=== PATIENT | female | born 1970 | race Caucasian/White ===

== ENCOUNTER 2016-06-21 16:48 | Emergency (ER) | payer BC ==
--- NOTE | ~2016-06-21 | EKG ---
PATIENT: RUSSELL MATTA UNIT #: [id number] Ventricular Rate: 58 BPM Atrial Rate: 58 BPM P-R Interval: 142 ms QRS Duration: 70 ms Q-T Interval: 422 ms QTC Calculation(Bezet): 414 ms P [place]: 29 degrees Calculated R [place]: 56 degrees Calculated T [place]: 41 degrees Diagnosis Line: Sinus bradycardia Diagnosis Line: Otherwise normal ECG Diagnosis Line: When compared with ECG of 24-OCT-2015 02:19, Diagnosis Line: No significant change was found Diagnosis Line: Confirmed by RODRIGUEZ STEIN MD ([id number]) on 06/22/2016 Diagnosis Line: 11:17:48 PM INTERPRETING MD: EMIL GASTON
--- NOTE | ~2016-06-21 | CT71 ---
[facility] A Service [facility] RADIOLOGY TEXT RESULTS PATIENT: RUSSELL MATTA LOCATION: [facility] : 70 UNIT #: [id number] AGE: [address]: NYLA GONGORA SEX: F ORDER DR: [id number] [facility]. [place], [place] [address] [id number] E MR#: [id number] Acc #: [id number] NAME: RUSSELL MATTA. : 1970 SEX: F STUDY DATE/TIME: 06/21/2016 17:40 UNIT: [facility] ROOM: STUDY DESCRIPTION: CT Head Wo Contrast Attending Physician: Nyla Gongora Aprn Ordering Physician: Ed Doctor [id number] [facility] Primary Care Physician: Huyen Shea M.D. MEDICAL IMAGING REPORT This report is preliminary unless electronic signature is present EXAM CT head INDICATIONS Headache and lightheadedness for 4 days. Syncope for [address] head without contrast. This CT exam was performed with one or more of the following radiation dose reduction techniques: automatic exposure control, adjustment of mA and/or kV according to patient size, and iterative reconstruction. COMPARISON CT head dated 12/13/2014. FINDINGS Axial noncontrast images were obtained from the skull base to the vertex. Ventricular size and configuration are normal. There is no evidence of acute infarct or hemorrhage. There are no extra-axial fluid collections. No mass lesion or mass effect is seen. There are no skull fractures. There is some mild mucosal thickening within the ethmoidal air cells, frontal sinuses, and sphenoid sinuses. IMPRESSION Normal noncontrast head CT. Dictated by... Glenroy Desai M.D. [facility] A Service [facility] RADIOLOGY TEXT RESULTS PATIENT: RUSSELL MATTA LOCATION: [facility] : 70 UNIT #: [id number] AGE: [address]: NYLA GONGORA SEX: F ORDER DR: THIS IS AN ELECTRONICALLY VERIFIED REPORT Glenroy Desai M.D. at 06/21/2016 10:07 PM ANIRUDH/kieran TD: 06/21/2016 21:56 JOB #: [id number] MEDICAL IMAGING REPORT Page 1 of 1 COPY
[2016-06-21 13:56] LABS: INFLUENZA A NEG (NEG); INFLUENZA B NEG (NEG)
[2016-06-21 14:56] LABS: URINE SOURCE CLEAN CATCH
[2016-06-21 14:59] LABS: URINE APPEARANCE CLEAR; URINE BILIRUBIN NEG (NEG); URINE BLOOD NEG (NEG); URINE COLOR YELLOW; URINE GLUCOSE NEG (NEG); URINE KETONE NEG (NEG); URINE LEUKOCYTE ESTERASE NEG (NEG); URINE NITRATE NEG (NEG); URINE PH 6.5 (5-8); URINE PROTEIN NEG (NEG)
[2016-06-21 15:00] LABS: BASOPHIL% 0.4 % (0-2.5); EOSINOPHIL% 0.8 % (0.0-7.0); HEMOGLOBIN 14.5 gm/dL (12.0-16.0); LYMPHOCYTE# 1.5 X10e3 (1.0-3.5); MEAN CELL VOLUME 87.7 FL (83-96); MEAN CORPUSCULAR HEMOGLOBIN 30.4 PG (28-34); MEAN CORPUSCULAR HGB CONC 34.6 g/dL (30-36); MEAN PLATELET VOLUME 9.1 FL (6.5-11.5); MONOCYTE# 0.3 X10e3 (0-1.0); MONOCYTE% 6.4 % (3.0-12.0); NEUTROPHIL# 3.3 X10e3 (1.5-7.1); NEUTROPHIL% 64.4 % (40-75); PLATELET COUNT 236 X10e3 (140-420); RED BLOOD COUNT 4.79 X10e (3.90-5.30); RED CELL DISTRIBUTION WIDTH 13.1 % (11.0-15.5); WHITE BLOOD COUNT 5.2 X10e3 (4.0-10.5)
[2016-06-21 15:05] LABS: DIFF IND NO
[2016-06-21 15:06] LABS: CULTURE INDICATED? NO
[2016-06-21 15:26] LABS: ALBUMIN SERUM 3.9 g/dL (3.5-5.0); BILIRUBIN, DIRECT 0.1 mg/dL (0.0-0.2); BILIRUBIN,INDIRECT 0.4 mg/dL (0.0-0.9); BILIRUBIN,TOTAL 0.5 mg/dL (0.2-2.0); BUN/CREATININE RATIO 17.14; CALCIUM SERUM 8.9 mg/dL (8.4-10.2); CREATININE SERUM 0.7 mg/dL (0.6-1.4); GLOM FILT RATE Estimated 104.6 mL/min (>60); POTASSIUM 3.3 mmol/L (3.5-5.1); PROTEIN TOTAL SERUM 7.6 g/dL (6.0-8.3)
[2016-06-21 16:10] LABS: POC - CKMB <1.0 ng/mL (0.0-7.9); POC - TROPONIN <0.05 ng/mL (<=0.05)
[~2016-06-21 16:48] MED LIST: AMLODIPINE BESYL5 MG PO; ATENOLOL25 MG PO; BETASERON; CYMBALTA; HYDROCHLOROTHIA25 MG PO; K-DUR20 ME1 PO; LORTAB 10-5001 EACH; LORTAB 10-5001 EACH PO; NEXIUM PO; NICOTINE TRANSD21 MG EXT; OMEPRAZOLE10 MG PO; OMEPRAZOLE20 M1 PO; OMEPRAZOLE40 M1 PO; PHENERGAN25 M1 PO; PROTONIX20 MG PO; REBIF IM; REBIF SUBQ; TARKA; TARKA PO; TRIPHASIL-281 TAB; ZESTRIL40 MG PO; ZOFRAN ODT4 MG PO
[2016-06-21 17:50] LABS: POC - CKMB <1.0 ng/mL (0.0-7.9); POC - TROPONIN <0.05 ng/mL (<=0.05)
== END 2016-06-21 20:12 | disposition home or self-care (01) ==
LOC: CED 16:48
PROVIDERS: Emergency Medicine; Nurse Practitioner Family
DX: G43.109 Migraine with aura, not intractable, without status migrainosus (principal); I10 Essential (primary) hypertension; K21.9 Gastro-esophageal reflux disease without esophagitis; F17.210 Nicotine dependence, cigarettes, uncomplicated; Z98.51 Tubal ligation status; Z98.890 Other specified postprocedural states; Z88.5 Allergy status to narcotic agent
CPT/HCPCS: 36415; 70450; 80048; 80076; 81003; 82553; 84484; 84703; 85025; 87804; 93005; 96361; 96374; 96375; 99284; J0780; J1885; J2405; J2765

== ENCOUNTER 2016-11-21 19:25 | Emergency (ER) | payer BC ==
[~2016-11-21] VITALS: Ht 160 cm; Wt 79.4 kg
--- NOTE | ~2016-11-21 | EKG ---
PATIENT: RUSSELL MATTA UNIT #: [id number] Ventricular Rate: 68 BPM Atrial Rate: 68 BPM P-R Interval: 164 ms QRS Duration: 68 ms Q-T Interval: 388 ms QTC Calculation(Bezet): 412 ms P [place]: 50 degrees Calculated R [place]: 4 degrees Calculated T [place]: 11 degrees Diagnosis Line: Normal sinus rhythm Diagnosis Line: Normal ECG Diagnosis Line: When compared with ECG of 21-JUN-2016 14:43, Diagnosis Line: No significant change was found Diagnosis Line: Confirmed by MARYSE GROSS MD ([id number]) on 11/22/2016 Diagnosis Line: 2:03:58 PM INTERPRETING MD: RENATO GASTON
[2016-11-21] MEDS ORDERED: REBIF44 MC1 SUBQ (19:55)
[2016-11-21] MEDS ORDERED: OMEPRAZOLE40 M1 PO (19:57)
[2016-11-21] MEDS ORDERED: AMLODIPINE BESYL5 MG PO (19:58)
[2016-11-21] MEDS ORDERED: HYDROCHLOROTHIA25 MG PO (19:58)
[2016-11-21] MEDS ORDERED: PRINIVIL40 MG PO (19:59)
[2016-11-21 20:51] LABS: POC - CKMB 1.1 ng/mL (0.0-7.9); POC - TROPONIN <0.05 ng/mL (<=0.05)
[2016-11-21 20:57] LABS: BASOPHIL% 0.3 % (0-2.5); EOSINOPHIL% 0.2 % (0.0-7.0); HEMATOCRIT 42.6 % (35.0-45.0); HEMOGLOBIN 14.6 gm/dL (12.0-16.0); LYMPHOCYTE# 2.2 X10e3 (1.0-3.5); LYMPHOCYTE% 35.4 % (17.0-45.0); MEAN CELL VOLUME 88.3 FL (83-96); MEAN CORPUSCULAR HEMOGLOBIN 30.2 PG (28-34); MEAN CORPUSCULAR HGB CONC 34.2 g/dL (30-36); MEAN PLATELET VOLUME 8.7 FL (6.5-11.5); MONOCYTE# 0.4 X10e3 (0-1.0); NEUTROPHIL# 3.6 X10e3 (1.5-7.1); NEUTROPHIL% 58.1 % (40-75); PLATELET COUNT 291 X10e3 (140-420); RED BLOOD COUNT 4.83 X10e (3.90-5.30); RED CELL DISTRIBUTION WIDTH 13.6 % (11.0-15.5); WHITE BLOOD COUNT 6.2 X10e3 (4.0-10.5)
[2016-11-21 21:02] LABS: DIFF IND NO
[2016-11-21 21:12] LABS: AMPHETAMINE NEG (NEG); BARBITURATES NEG (NEG); BENZODIAZEPINES NEG (NEG); COCAINE NEG (NEG); MARIJUANA NEG (NEG); OPIATES NEG (NEG); TRICYCLIC ANTIDEPRESSANTS NEG (NEG); U METHADONE NEG (NEG)
[2016-11-21 21:24] LABS: SALICYLATE <4.0 mg/dL
[2016-11-21 21:27] LABS: ACETAMINOPHEN <10 ug/mL
[2016-11-21 21:28] LABS: ALBUMIN SERUM 4.1 g/dL (3.5-5.0); BILIRUBIN, DIRECT 0.1 mg/dL (0.0-0.2); BILIRUBIN,TOTAL 0.1 mg/dL (0.2-2.0); BUN/CREATININE RATIO 15.71; CALCIUM SERUM 9.4 mg/dL (8.4-10.2); CREATININE SERUM 0.7 mg/dL (0.6-1.4); GLOM FILT RATE Estimated 103.9 mL/min (>60); PROTEIN TOTAL SERUM 7.5 g/dL (6.0-8.3)
[2016-11-21 22:19] LABS: POC - CKMB <1.0 ng/mL (0.0-7.9); POC - TROPONIN <0.05 ng/mL (<=0.05)
== END 2016-11-22 03:18 | disposition home or self-care (01) ==
LOC: CED 19:25
PROVIDERS: Emergency Medicine
DX: F41.9 Anxiety disorder, unspecified (principal); F32.9 Major depressive disorder, single episode, unspecified; K21.9 Gastro-esophageal reflux disease without esophagitis; F17.200 Nicotine dependence, unspecified, uncomplicated; Z88.8 Allergy status to other drugs, medicaments and biological substances
CPT/HCPCS: 36415; 80048; 80076; 80307; 82553; 84484; 84703; 85025; 93005; 99284; G0480